=== PATIENT | female | born 1980 | race Caucasian/White ===

== ENCOUNTER 2019-10-20 06:01 | Emergency (ER) | payer OTHER, SELFPAY ==
[2019-10-20 06:08] VITALS: BP 124/86; PULSE 101; RESP 15; TEMP 36.8; O2SAT 94; BMI 41.4
[2019-10-20 06:17] VITALS: BP 124/86; PULSE 97; RESP 18; O2SAT 94
--- NOTE | 2019-10-20 06:30 | XRR_ITS ---
PROCEDURE INFORMATION: Exam: XR Chest, 1 View Exam date and time: 10/20/2019 6:32 AM Age: 39 years old Clinical indication: Other: Neck pain and RT shoulder numbness; Additional info: Chest pain TECHNIQUE: Imaging protocol: XR of the chest Views: 1 view. COMPARISON: No relevant prior studies available. FINDINGS: Lungs: Unremarkable. No consolidation. Pleural space: Unremarkable. No pleural effusion. No pneumothorax. Heart/Mediastinum: Unremarkable. No cardiomegaly. Bones/joints: Unremarkable. XR/XR chest 1V portable [id number] IMPRESSION: No acute findings.
--- NOTE | 2019-10-20 06:30 | CTR_ITS ---
PROCEDURE INFORMATION: Exam: CT Head Without Contrast Exam date and time: 10/20/2019 6:44 AM Age: 39 years old Clinical indication: Other: Numbness on RT shoulder; Additional info: Symptoms of acute stroke TECHNIQUE: Imaging protocol: Computed tomography of the head without contrast. Total DLP: 766.58 mGy-cm Radiation optimization: All CT scans at this facility use at least one of these dose optimization techniques: automated exposure control; mA and/or kV adjustment per patient size (includes targeted exams where dose is matched to clinical indication); or iterative reconstruction. COMPARISON: No relevant prior studies available. FINDINGS: Brain: Normal. No hemorrhage. Unremarkable white matter. No mass effect. Ventricles: Normal. No ventriculomegaly. Bones/joints: Unremarkable. No acute fracture. Sinuses: There are air-fluid levels in the left sphenoid and right frontal sinuses. Mastoid air cells: Visualized mastoid air cells are well aerated. Soft tissues: Unremarkable. CT/CT head wo con* [id number] IMPRESSION: 1. No acute intracranial findings identified. Please refer to incidental findings in body of report. 2. There are air-fluid levels in the left sphenoid and right frontal sinuses. Radiation Dose CTDIVOL = (mGy): DLP = 766.58 (mGy-cm)
--- NOTE | 2019-10-20 06:30 | CTR_ITS ---
PROCEDURE INFORMATION: Exam: CT Angiography Head With Contrast Exam date and time: 10/20/2019 6:44 AM Age: 39 years old Clinical indication: Other: Numbness on RT shoulder; Additional info: Neck pain TECHNIQUE: Imaging protocol: Computed tomography angiography of the head with intravenous contrast. 3D rendering: MIP and/or 3D reconstructed images were created by the technologist. Total DLP: 2704.97 mGy-cm Radiation optimization: All CT scans at this facility use at least one of these dose optimization techniques: automated exposure control; mA and/or kV adjustment per patient size (includes targeted exams where dose is matched to clinical indication); or iterative reconstruction. Contrast material: OMNI 300; Contrast volume: 95 ml; Contrast route: RT WRIST; COMPARISON: CT head wo con* [id number] 10/20/2019 7:08 AM FINDINGS: Right internal carotid artery: Unremarkable. Intracranial segment is patent with no significant stenosis. No aneurysm. Right anterior cerebral artery: Unremarkable. No occlusion or significant stenosis. No aneurysm. Right middle cerebral artery: Unremarkable. No occlusion or significant stenosis. No aneurysm. Right posterior cerebral artery: There is a origin of the right posterior cerebral artery. Right vertebral artery: The patient is right vertebral artery dominant. Left internal carotid artery: Unremarkable. Intracranial segment is patent with no significant stenosis. No aneurysm. Left anterior cerebral artery: Unremarkable. No occlusion or significant stenosis. No aneurysm. Left middle cerebral artery: Unremarkable. No occlusion or significant stenosis. No aneurysm. Left posterior cerebral artery: Unremarkable. No occlusion or significant stenosis. No aneurysm. Left vertebral artery: Unremarkable. No occlusion or significant stenosis. No aneurysm. Basilar artery: Unremarkable. No occlusion or significant stenosis. No aneurysm. HEAD: Sinuses: There are air-fluid levels in the left sphenoid and right frontal sinuses. IMPRESSION: 1. No acute findings are identified. Please see above report for incidental findings. 2. There is a origin of the right posterior cerebral artery. 3. The patient is right vertebral artery dominant. 4. There are air-fluid levels in the left sphenoid and right frontal sinuses. PROCEDURE INFORMATION: Exam: CT Angiography Neck With Contrast Exam date and time: 10/20/2019 6:44 AM Age: 39 years old Clinical indication: Other: Numbness on RT shoulder; Additional info: Neck pain TECHNIQUE: Imaging protocol: Computed tomography angiography of the neck with intravenous contrast. 3D rendering: MIP and/or 3D reconstructed images were created by the technologist. Total DLP: 2704.97 mGy-cm Radiation optimization: All CT scans at this facility use at least one of these dose optimization techniques: automated exposure control; mA and/or kV adjustment per patient size (includes targeted exams where dose is matched to clinical indication); or iterative reconstruction. Contrast material: OMNI 300; Contrast volume: 95 ml; Contrast route: RT WRIST; COMPARISON: CT head wo con* [id number] 10/20/2019 7:08 AM FINDINGS: VASCULATURE: Right common carotid artery: Unremarkable. No stenosis. No dissection or occlusion. Right internal carotid artery: Unremarkable extracranial segment. No stenosis. No dissection or occlusion. Right external carotid artery: Unremarkable. No occlusion or stenosis of the origin. Right vertebral artery: The patient is right vertebral artery dominant. Left common carotid artery: Unremarkable. No stenosis. No dissection or occlusion. Left internal carotid artery: Unremarkable extracranial segment. No stenosis. No dissection or occlusion. Left external carotid artery: Unremarkable. No occlusion or stenosis of the origin. Left vertebral artery: Unremarkable. No stenosis. No dissection or occlusion. NECK: Thyroid: There is a 1.4 cm heterogeneous solid right thyroid isthmus nodule. Bones/joints: No acute fracture. Soft tissues: Normal. No significant soft tissue swelling. CT/CT angio headneck* [id number] IMPRESSION: 1. No acute findings are identified. Please see above report for incidental findings. 2. There is a 1.4 cm heterogeneous solid right thyroid isthmus nodule. Followup thyroid ultrasound is recommended. Radiation Dose CTDIVOL = (mGy): DLP = 2704.97~2704.97 (mGy-cm)
--- NOTE | 2019-10-20 06:32 | ECG_ITS ---
Measurements Intervals [place] Rate: 94 P: 44 ME: 155 QRS: 23 QRSD: 85 T: 18 QT: 312 QTc: 391 SINUS RHYTHM No previous ECG available for comparison Electronically Signed On 10-20-2019 13:28:06 [employer] by Beryl Liang M.D. [email or web address]
[2019-10-20 06:45] LABS: Glucose Point of Care 191 mg/dL (70-110)
[2019-10-20] MEDS: sodium chloride 0.9% 500 ML 999 ML IV (06:53)
[2019-10-20 07:01] LABS: Add Urine Microscopic? NO
[2019-10-20 07:13] LABS: Basophils # 0.1 10^3/uL (0.0-0.1); Basophils % 0.5 %; Eosinophils # 0.2 10^3/uL (0.0-0.8); Eosinophils % 1.7 %; Hemoglobin 13.2 g/dL (11.5-15.3); Lymphocytes # 3.4 10^3/uL (0.8-4.8); Lymphocytes % 26.3 %; Mean Corpuscular HGB Conc 31.4 g/dL (30.0-36.0); Mean Corpuscular Hemoglobin 28.5 pg (28.0-34.0); Mean Corpuscular Volume 90.7 fL (81-99); Mean Platelet Volume 9.9 fL (7.4-10.4); Monocytes # 0.6 10^3/uL (0.2-0.9); Monocytes % 4.6 %; Neutrophils # 8.5 10^3/uL (1.8-7.7); Neutrophils % 66.4 %; Nucleated Red Blood Cells % 0 %; Platelet Count 338 10^3/cmm (130-400); Red Blood Count 4.63 10^6/uL (4.1-5.3); Red Cell Distribution Width 14.7 % (12.1-15.1); White Blood Count 12.8 10^3/uL (4.0-10.0)
[2019-10-20 07:16] LABS: Bilirubin Urine 1+ (NEGATIVE); Blood Urine Neg (Negative); Glucose Urine UA Norm (Normal); Ketones Urine 1+ (Negative); Leukocyte Esterase Urine Negative (Negative); Nitrate Urine Negative (Negative); Protein Urine Neg (Negative); Specific Gravity, Urine 1.015 (1.005-1.030); Urine Appearance Clear (CLEAR); Urine Color Yellow (Yellow); Urobilinogen Urine 1 mg/dL (Negative); pH Urine 6 (5-7)
[2019-10-20 07:25] LABS: Amphetamines Screen Urine Negative (Negative); Barbiturates Screen Urine Negative (Negative); Benzodiazepines Screen Urine Negative (Negative); Cocaine Screen Urine Negative (Negative); PCP Screen Urine Negative (Negative); THC Screen Urine Negative (Negative)
--- NOTE | 2019-10-20 07:28 | ED_ITS ---
HPI - Chest Pain General: Chief Complaint: Chest Pain Stated Complaint: numbness,high blood pressure Time Seen by Provider: 10/20/19 06:30 Source: patient and family History of Present Illness: HPI narrative: Cecily is a nice 39-year-old female who comes in complaining of sharp right sided neck pain with tingling in her face, arm and leg. She describes the tingling as a paresthesia type sensation. She also states that she feels it in her tongue. She says this started at 520 this morning and was associated with a sharp pain. The pain is now gone and the numbness is slowly getting better. She has had similar symptoms in the past with anxiety but never had the pain. She denies any other problems with speech, weakness, syncope, chest pain or other complaint. Associated symptoms: Deny abdominal pain, diaphoresis, dyspnea, fever(s), nausea, palpitations, syncope or vomiting Review of Systems General: Reports: other (negative unless marked) Const: Denies: fever, chills, body aches, fatigue, malaise or diaphoresis Eyes: Denies: change in vision or blurry vision ENMT: Denies: throat pain, painful swallowing, hoarseness, ear pain, ear discharge, Change in hearing or nasal discharge Card: Denies: chest pain, palpitations, irregular heart rhythm, syncope, pre- syncope, shortness of breath on exertion or shortness of breath when lying down Resp: Denies: shortness of breath, productive cough, non-productive cough, wheezing, coughing up blood or chest congestion GI: Denies: abdominal pain, nausea, vomiting, vomiting blood, coffee grounds in vomit, diarrhea, constipation, cramping, blood in stool or black tarry stool : Denies: flank pain, painful urination, urinary frequency, urinary urgency, decreased urine ouput, urinary incontinence or blood in urine Musc: Denies: neck pain, back pain, extremity pain, extremity swelling, joint pain, joint swelling, joint warmth or joint stiffness Skin/Breast: Denies: rash, skin tenderness or yellow skin Neuro: Reports: other (As described in HPI); Denies: headache, numbness in extremities, weakness in extremities, changes in sensation, lack of coordination, difficulty walking, dizziness, vertigo or confusion Endo: Denies: excessive thirst, tired all the time, cold intolerance, exc essive sweating, flushing or hot flashes Tobi/Lymph: Denies: easy bruising, easy bleeding, petechiae or enlarged lymph nodes All/Imm: Denies: hives, throat swelling, tongue swelling, facial swelling or acute wheezing PFSH ED PFSH: Statuses (acute, chronic, etc) shown below reflect problem list status as previously entered and may not be historically accurate Medical History (Updated 10/20/19 @ 09:06 by Crista Sotelo) Anxiety (Acute) Arrhythmia (Acute) Diabetes mellitus (Acute) GERD (gastroesophageal reflux disease) (Acute) Hypertension (Acute) Zenker's diverticulum (Acute) Surgical History (Updated 10/20/19 @ 07:32 by Crista Sotelo) deliv NOS-unsp (Acute) H/O breast surgery (Acute) History of dental surgery (Acute) History of removal of ovarian cyst (Acute) Family History (Updated 10/20/19 @ 07:33 by Crista Sotelo) Other Diabetes Hypertension Stroke Social History Smoking and tobacco status: current every day smoker Physical Exam Const: COMMON NORMALS: no apparent distress, oriented x3, no limitations, healthy appearing and well nourished EXAM LIMITATIONS: no altered mental status GENERAL APPEARANCE: cooperative, well kempt and well developed ORIENTATION/CONSCIOUSNESS: Yes awake HENMT: COMMON NORMALS: normocephalic, head/scalp atraumatic, hearing grossly normal bilaterally, external ears normal, EAC's normal, external nose normal and moist oral mucous membranes HEAD & SCALP: normal to inspection, normocephalic and atraumatic FACE & SINUS: normal facial exam and face symmetric NOSE: external nose normal and nares normal EXTERNAL EAR: Yes external ears normal EXTERNAL AUDITORY CANAL: EAC's normal MOUTH: oral and palatal mucosa normal and tongue normal Eye: COMMON NORMALS: PERRL, EOMs intact bilaterally, conjunctivae normal and no scleral icterus GENERAL EYE: normal appearance of both eyes and normal light reflex CONJUNCTIVA: Yes conjunctivae normal SCLERA: sclerae normal CORNEA: Yes corneas normal PUPIL: Yes PERRL DIRECT OPHTHALMOSCOPY: Yes normal light reflex Neck/C-Spine: COMMON NORMALS: full ROM, no lymphadenopathy, supple, no meningeal signs and no JVD GENERAL: Yes normal visual inspection and Yes trachea midline CERVICAL SPINE: Yes cervical ROM normal Chest: COMMONS NORMALS: inspection of chest normal and palpation of chest normal Resp: COMMON NORMALS: normal respiratory effort, no retractions, no use of accessory muscles and clear to auscultation bilaterally EFFORT & INSPECTION: Yes able to speak in complete sentences AUSCULTATION: clear to auscultation bilaterally Cardio: COMMON NORMALS: no JVD, regular rate, regular rhythm, S1 normal heart sound, S2 normal heart sound, no gallops, no clicks, no murmurs and no rub JUGULAR VENOUS DISTENTION: no JVD RATE: regular rate RHYTHM: regular rhythm HEART SOUNDS: S1 normal and S2 normal GI: COMMON NORMALS: soft to palpation, non-tender, no hepatosplenomegaly and no masses INSPECTION: Yes normal to inspection PALPATION: Yes soft and Yes no hepatosplenomegaly : COMMON NORMALS: Yes no CVA tenderness BLADDER/KIDNEY EXAM: Yes no CVA tenderness Back/Pelvis: COMMON NORMALS: no CVA tenderness, thoracic and lumbar spine normal to inspection, no thoracic nor lumbar tenderness and thoraco-lumbar ROM normal Extremity: COMMON NORMALS: normal to inspection, full ROM, normal capillary refill, no joint enlargement, no clubbing, cyanosis or edema and no calf tenderness Neuro: HAROON COMA SCALE: other (NIHSS - 1, 1 point for sensory) COMMON NORMALS: oriented x3, CN's II-XII intact bilaterally, moves all extremities, no focal motor deficits and no sensory deficits noted MENINGEAL SIGNS: Yes no meningeal signs Psych: COMMON NORMALS: mental status grossly normal, thought process normal, cooperative, affect normal, speech normal and activity/motor behavior normal APPEARANCE: Yes well kempt SPEECH: Yes normal speech THOUGHT PROCESS: normal thought process Skin: COMMON NORMALS: no rashes or lesions noted, skin turgor normal, no jaundice, no petechiae and no mottling GENERAL SKIN EXAM: no rashes or lesions noted and turgor normal Course Vital Signs: Vital signs: Vital Signs Temperature 98.3 F 10/20/19 06:08 Pulse Rate 82 10/20/19 08:03 Respiratory Rate 19 H 10/20/19 08:03 Blood Pressure 124/92 10/20/19 08:03 Pulse Oximetry 91 10/20/19 08:03 MDM - Chest Pain MDM Narrative: Medical decision making narrative: 0902 -the patient's symptoms are entirely gone. She has no more tingling on her right side. It is unclear whether this was a complicated migraine as she did develop a headache after the fact. I have informed her of the possibility of a TIA and she is aware but she refuses to come into the hospital for further risk stratification. She states that her blood sugar and cholesterol are under good control and she already takes a baby aspirin daily. I will have her increase to a full strength aspirin and she will discuss with her primary care provider about adding Plavix. The patient understands that she is at increased risk of stroke in the short-term and long-term and she will need to follow-up for further testing but she is adamant she does not want to come in at this time. The patient was informed if she change her mind she is more than welcome to return. Lab Data: Labs: Lab Results 10/20/19 10/20/19 10/20/19 Range/Units 06:41 06:57 06:57 WBC 12.8 H (4.0-10.0) 10^3/ uL RBC 4.63 (4.1-5.3) 10^6/u L Hgb 13.2 (11.5-15.3) g/dL Hct 42.0 (37.0-47.0) % MCV 90.7 (81-99) fL MCH 28.5 (28.0-34.0) pg MCHC 31.4 (30.0-36.0) g/dL RDW 14.7 (12.1-15.1) % Plt Count 338 (130-400) 10^3/c mm MPV 9.9 (7.4-10.4) fL Neut % (Auto) 66.4 % Lymph % (Auto) 26.3 % [place] % (Auto) 4.6 % Eos % (Auto) 1.7 % Baso % (Auto) 0.5 % Neut # (Auto) 8.5 H (1.8-7.7) 10^3/u L Lymph # (Auto) 3.4 (0.8-4.8) 10^3/u L [place] # (Auto) 0.6 (0.2-0.9) 10^3/u L Eos # (Auto) 0.2 (0.0-0.8) 10^3/u L Baso # (Auto) 0.1 (0.0-0.1) 10^3/u L Nucleated RBC % (a uto) 0 % Nucleated RBCs # 0.0 /100WBC PT 12.60 (10.5-13.3) SECO NDS INR 0.91 (0.8-1.2) APTT 37.0 H (23.9-36.7) SECO NDS Sodium (136-145) mmol/L Potassium (3.5-5.1) mmol/L Chloride (98-107) mmol/L Carbon Dioxide (22-29) mmol/L Anion Gap (5-19) BUN (6-20) mg/dL Creatinine (0.5-0.9) mg/dL GFR Calculation (90-130) mL/min Glucose (74-109) mg/dL POC Glucose 191 (70-110) mg/dL Calcium (8.6-10.0) mg/Dl Total Bilirubin (0.15-1.2) mg/dL AST (0-32) U/L ALT (0-33) U/L Alkaline Phosphata se (35-105) IU/L Troponin T Baselin e (0-10) ng/mL Total Protein (6.6-8.7) g/dL Albumin (3.5-5.2) g/dL Globulin (1.3-4.6) g/dL Ser , Deep i-Qnt mIU/mL Urine Color (Yellow) Urine Appearance (CLEAR) Urine pH (5-7) Ur Specific Gravit y (1.005-1.030) Urine Protein (Negative) Urine Glucose (UA) (Normal) Urine Ketones (Negative) Urine Occult Blood (Negative) Urine Nitrate (Negative) Urine Bilirubin (NEGATIVE) Urine Urobilinogen (Negative) mg/dL Ur Leukocyte Daysi ase (Negative) Urine Opiates Scre en (Negative) ng/mL Ur Barbiturates Sc reen (Negative) ng/mL Ur Phencyclidine S crn (Negative) ng/mL Ur Amphetamines Sc reen (Negative) ng/mL U Benzodiazepines Scrn (Negative) ng/mL Urine Cocaine Scre en (Negative) ng/mL U Marijuana (THC) Screen (Negative) ng/mL 10/20/19 10/20/19 10/20/19 Range/Units 06:57 06:57 06:57 WBC (4.0-10.0) 10^3/ uL RBC (4.1-5.3) 10^6/u L Hgb (11.5-15.3) g/dL Hct (37.0-47.0) % MCV (81-99) fL MCH (28.0-34.0) pg MCHC (30.0-36.0) g/dL RDW (12.1-15.1) % Plt Count (130-400) 10^3/c mm MPV (7.4-10.4) fL Neut % (Auto) % Lymph % (Auto) % [place] % (Auto) % Eos % (Auto) % Baso % (Auto) % Neut # (Auto) (1.8-7.7) 10^3/u L Lymph # (Auto) (0.8-4.8) 10^3/u L [place] # (Auto) (0.2-0.9) 10^3/u L Eos # (Auto) (0.0-0.8) 10^3/u L Baso # (Auto) (0.0-0.1) 10^3/u L Nucleated RBC % (a uto) % Nucleated RBCs # /100WBC PT (10.5-13.3) SECO NDS INR (0.8-1.2) APTT (23.9-36.7) SECO NDS Sodium 137 (136-145) mmol/L Potassium 4.1 (3.5-5.1) mmol/L Chloride 103 (98-107) mmol/L Carbon Dioxide 21 L (22-29) mmol/L Anion Gap 17.1 (5-19) BUN 8 (6-20) mg/dL Creatinine 0.7 (0.5-0.9) mg/dL GFR Calculation 92.2 (90-130) mL/min Glucose 189 H (74-109) mg/dL POC Glucose (70-110) mg/dL Calcium 9.6 (8.6-10.0) mg/Dl Total Bilirubin 0.3 (0.15-1.2) mg/dL AST 13 (0-32) U/L ALT 15 (0-33) U/L Alkaline Phosphata se 95 (35-105) IU/L Troponin T Baselin e 6 (0-10) ng/mL Total Protein 7.1 (6.6-8.7) g/dL Albumin 4.3 (3.5-5.2) g/dL Globulin 2.8 (1.3-4.6) g/dL Ser , Deep i-Qnt < 0.50 mIU/mL Urine Color (Yellow) Urine Appearance (CLEAR) Urine pH (5-7) Ur Specific Gravit y (1.005-1.030) Urine Protein (Negative) Urine Glucose (UA) (Normal) Urine Ketones (Negative) Urine Occult Blood (Negative) Urine Nitrate (Negative) Urine Bilirubin (NEGATIVE) Urine Urobilinogen (Negative) mg/dL Ur Leukocyte Daysi ase (Negative) Urine Opiates Scre en (Negative) ng/mL Ur Barbiturates Sc reen (Negative) ng/mL Ur Phencyclidine S crn (Negative) ng/mL Ur Amphetamines Sc reen (Negative) ng/mL U Benzodiazepines Scrn (Negative) ng/mL Urine Cocaine Scre en (Negative) ng/mL U Marijuana (THC) Screen (Negative) ng/mL 10/20/19 10/20/19 Range/Units 06:57 06:57 WBC (4.0-10.0) 10^3/ uL RBC (4.1-5.3) 10^6/u L Hgb (11.5-15.3) g/dL Hct (37.0-47.0) % MCV (81-99) fL MCH (28.0-34.0) pg MCHC (30.0-36.0) g/dL RDW (12.1-15.1) % Plt Count (130-400) 10^3/c mm MPV (7.4-10.4) fL Neut % (Auto) % Lymph % (Auto) % [place] % (Auto) % Eos % (Auto) % Baso % (Auto) % Neut # (Auto) (1.8-7.7) 10^3/u L Lymph # (Auto) (0.8-4.8) 10^3/u L [place] # (Auto) (0.2-0.9) 10^3/u L Eos # (Auto) (0.0-0.8) 10^3/u L Baso # (Auto) (0.0-0.1) 10^3/u L Nucleated RBC % (a uto) % Nucleated RBCs # /100WBC PT (10.5-13.3) SECO NDS INR (0.8-1.2) APTT (23.9-36.7) SECO NDS Sodium (136-145) mmol/L Potassium (3.5-5.1) mmol/L Chloride (98-107) mmol/L Carbon Dioxide (22-29) mmol/L Anion Gap (5-19) BUN (6-20) mg/dL Creatinine (0.5-0.9) mg/dL GFR Calculation (90-130) mL/min Glucose (74-109) mg/dL POC Glucose (70-110) mg/dL Calcium (8.6-10.0) mg/Dl Total Bilirubin (0.15-1.2) mg/dL AST (0-32) U/L ALT (0-33) U/L Alkaline Phosphata se (35-105) IU/L Troponin T Baselin e (0-10) ng/mL Total Protein (6.6-8.7) g/dL Albumin (3.5-5.2) g/dL Globulin (1.3-4.6) g/dL Ser , Deep i-Qnt mIU/mL Urine Color Yellow (Yellow) Urine Appearance Clear (CLEAR) Urine pH 6 (5-7) Ur Specific Gravit y 1.015 (1.005-1.030) Urine Protein Neg (Negative) Urine Glucose (UA) Norm (Normal) Urine Ketones 1+ H (Negative) Urine Occult Blood Neg (Negative) Urine Nitrate Negative (Negative) Urine Bilirubin 1+ H (NEGATIVE) Urine Urobilinogen 1 H (Negative) mg/dL Ur Leukocyte Daysi ase Negative (Negative) Urine Opiates Scre en Positve (Negative) ng/mL Ur Barbiturates Sc reen Negative (Negative) ng/mL Ur Phencyclidine S crn Negative (Negative) ng/mL Ur Amphetamines Sc reen Negative (Negative) ng/mL U Benzodiazepines Scrn Negative (Negative) ng/mL Urine Cocaine Scre en Negative (Negative) ng/mL U Marijuana (THC) Screen Negative (Negative) ng/mL Imaging Data^: CT Head: Radiologist's impression: [address] [place] [address] CT Scan Report Signed Patient: Clemencia Ibrahim MR#: [id number] : 1980 Acct:[id number] Age/Sex: 39 / F ADM Date: 10/20/19 Loc: ER Attending Dr: Ordering Physician: Crista Sotelo DO Date of Service: 10/20/19 Procedure(s): CT head wo con* [id number] Accession Number(s): [id number] cc: Crista Sotelo DO PROCEDURE INFORMATION: Exam: CT Head Without Contrast Exam date and time: 10/20/2019 6:44 AM Age: 39 years old Clinical indication: Other: Numbness on RT shoulder; Additional info: Symptoms of acute stroke TECHNIQUE: Imaging protocol: Computed tomography of the head without contrast. Total DLP: 766.58 mGy-cm Radiation optimization: All CT scans at this facility use at least one of these dose optimization techniques: automated exposure control; mA and/or kV adjustment per patient size (includes targeted exams where dose is matched to clinical indication); or iterative reconstruction. COMPARISON: No relevant prior studies available. FINDINGS: Brain: Normal. No hemorrhage. Unremarkable white matter. No mass effect. Ventricles: Normal. No ventriculomegaly. Bones/joints: Unremarkable. No acute fracture. Sinuses: There are air-fluid levels in the left sphenoid and right frontal sinuses. Mastoid air cells: Visualized mastoid air cells are well aerated. Soft tissues: Unremarkable. CT/CT head wo con* [id number] IMPRESSION: 1. No acute intracranial findings identified. Please refer to incidental findings in body of report. 2. There are air-fluid levels in the left sphenoid and right frontal sinuses. Radiation Dose CTDIVOL = (mGy): DLP = 766.58 (mGy-cm) Dictated By: Myron Hodges 10/20/19 0838 Signed By: Myron Hodges 10/20/19 0839 Other Imaging: Radiologist's impression: [address] [place] [address] CT Scan Report Signed Patient: Clemencia Ibrahim MR#: [id number] : 1980 Acct:[id number] Age/Sex: 39 / F ADM Date: 10/20/19 Loc: ER Attending Dr: Ordering Physician: Crista Sotelo DO Date of Service: 10/20/19 Procedure(s): CT angio headneck* [id number] Accession Number(s): [id number] cc: Crista Sotelo DO PROCEDURE INFORMATION: Exam: CT Angiography Head With Contrast Exam date and time: 10/20/2019 6:44 AM Age: 39 years old Clinical indication: Other: Numbness on RT shoulder; Additional info: Neck pain TECHNIQUE: Imaging protocol: Computed tomography angiography of the head with intravenous contrast. 3D rendering: MIP and/or 3D reconstructed images were created by the technologist. Total DLP: 2704.97 mGy-cm Radiation optimization: All CT scans at this facility use at least one of these dose optimization techniques: automated exposure control; mA and/or kV adjustment per patient size (includes targeted exams where dose is matched to clinical indication); or iterative reconstruction. Contrast material: OMNI 300; Contrast volume: 95 ml; Contrast route: RT WRIST; COMPARISON: CT head wo con* [id number] 10/20/2019 7:08 AM FINDINGS: Right internal carotid artery: Unremarkable. Intracranial segment is patent with no significant stenosis. No aneurysm. Right anterior cerebral artery: Unremarkable. No occlusion or significant stenosis. No aneurysm. Right middle cerebral artery: Unremarkable. No occlusion or significant stenosis. No aneurysm. Right posterior cerebral artery: There is a origin of the right posterior cerebral artery. Right vertebral artery: The patient is right vertebral artery dominant. Left internal carotid artery: Unremarkable. Intracranial segment is patent with no significant stenosis. No aneurysm. Left anterior cerebral artery: Unremarkable. No occlusion or significant stenosis. No aneurysm. Left middle cerebral artery: Unremarkable. No occlusion or significant stenosis. No aneurysm. Left posterior cerebral artery: Unremarkable. No occlusion or significant stenosis. No aneurysm. Left vertebral artery: Unremarkable. No occlusion or significant stenosis. No aneurysm. Basilar artery: Unremarkable. No occlusion or significant stenosis. No aneurysm. HEAD: Sinuses: There are air-fluid levels in the left sphenoid and right frontal sinuses. IMPRESSION: 1. No acute findings are identified. Please see above report for incidental findings. 2. There is a origin of the right posterior cerebral artery. 3. The patient is right vertebral artery dominant. 4. There are air-fluid levels in the left sphenoid and right frontal sinuses. PROCEDURE INFORMATION: Exam: CT Angiography Neck With Contrast Exam date and time: 10/20/2019 6:44 AM Age: 39 years old Clinical indication: Other: Numbness on RT shoulder; Additional info: Neck pain TECHNIQUE: Imaging protocol: Computed tomography angiography of the neck with intravenous contrast. 3D rendering: MIP and/or 3D reconstructed images were created by the technologist. Total DLP: 2704.97 mGy-cm Radiation optimization: All CT scans at this facility use at least one of these dose optimization techniques: automated exposure control; mA and/or kV adjustment per patient size (includes targeted exams where dose is matched to clinical indication); or iterative reconstruction. Contrast material: OMNI 300; Contrast volume: 95 ml; Contrast route: RT WRIST; COMPARISON: CT head wo con* [id number] 10/20/2019 7:08 AM FINDINGS: VASCULATURE: Right common carotid artery: Unremarkable. No stenosis. No dissection or occlusion. Right internal carotid artery: Unremarkable extracranial segment. No stenosis. No dissection or occlusion. Right external carotid artery: Unremarkable. No occlusion or stenosis of the origin. Right vertebral artery: The patient is right vertebral artery dominant. Left common carotid artery: Unremarkable. No stenosis. No dissection or occlusion. Left internal carotid artery: Unremarkable extracranial segment. No stenosis. No dissection or occlusion. Left external carotid artery: Unremarkable. No occlusion or stenosis of the origin. Left vertebral artery: Unremarkable. No stenosis. No dissection or occlusion. NECK: Thyroid: There is a 1.4 cm heterogeneous solid right thyroid isthmus nodule. Bones/joints: No acute fracture. Soft tissues: Normal. No significant soft tissue swelling. CT/CT angio headneck* [id number] IMPRESSION: 1. No acute findings are identified. Please see above report for incidental findings. 2. There is a 1.4 cm heterogeneous solid right thyroid isthmus nodule. Followup thyroid ultrasound is recommended. Radiation Dose CTDIVOL = (mGy): DLP = 2704.97 2704.97 (mGy-cm) Dictated By: Myron Hodges 10/20/19 0847 Signed By: Myron Hodges 10/20/19 0848 EKG Data^: EKG 1: Attestation: I personally reviewed and interpreted this EKG as follows: (EKG performed interpreted at 0622 -normal sinus rhythm at 94 beats a minute, normal [place] interval, normal axis, nonspecific ST and T wave changes. No acute ST segment elevations or changes.) EKG 2: Attestation: I personally reviewed and interpreted this EKG as follows: (EKG at 0841 -normal sinus rhythm at 74 beats minute, normal intervals, normal QRS, no acute ST or T wave changes.) Discharge Plan Discharge Patient Disposition: Home, Self-Care Clinical Impression: TIA (transient ischemic attack), Complicated migraine Condition: Stable Discharge Orders: Discharge Order (Routine); Ordered 10/20/19 Ordered By: Crista Sotelo Referrals: Candice Anand MD [Staff Physician] - (Follow-up with Dr. Anand or with Maday Ayala APN as soon as possible for recheck.) Discharge Diet: Low Cholesterol Discharge Activity: Increase activity as tolerated Patient Instructions: Headache - Migraine (Adult), TIA Activity Restrictions/Additional Instructions: Please return to the ER immediately for any of the signs or symptoms listed on your discharge instruction sheets, worsening/changing of your symptoms, you are not getting better as quickly as expected, or for ANY other cause or concerns. I have recommended and offered to admit you to the hospital for further evaluation of a possible mini stroke but you have declined. If your symptoms return/change or worsen you are encouraged and more than welcome to return to the ER for recheck. Coding Level of Care Code ED Program Evaluation Consultant for Chg Fwd Exam Problem Focused
[2019-10-20 07:32] LABS: Alanine Aminotransferase 15 U/L (0-33); Albumin Level 4.3 g/dL (3.5-5.2); Alkaline Phosphatase 95 IU/L (35-105); Anion Gap 17.1 (5-19); Aspartate Amino Transferase 13 U/L (0-32); Blood Urea Nitrogen 8 mg/dL (6-20); Calcium 9.6 mg/Dl (8.6-10.0); Carbon Dioxide 21 mmol/L (22-29); Chloride 103 mmol/L (98-107); Globulin 2.8 g/dL (1.3-4.6); Glomerular Filtration Rate 92.2 mL/min (90-130); Glucose 189 mg/dL (74-109); Potassium 4.1 mmol/L (3.5-5.1); Sodium 137 mmol/L (136-145); Total Bilirubin 0.3 mg/dL (0.15-1.2); Total Protein 7.1 g/dL (6.6-8.7)
[2019-10-20 07:33] LABS: Troponin(5th) Baseline 6 ng/mL (0-10)
[2019-10-20 07:34] VITALS: BP 139/85; PULSE 88; RESP 17; O2SAT 96
[2019-10-20 07:53] LABS: HCG Quantitative < 0.50 mIU/mL
[2019-10-20 08:03] VITALS: BP 124/92; PULSE 82; RESP 19; O2SAT 91
[2019-10-20 08:20] LABS: INR 0.91 (0.8-1.2)
--- NOTE | 2019-10-20 08:32 | ECG_ITS ---
Measurements Intervals [place] Rate: 74 P: 44 NE: 159 QRS: 41 QRSD: 75 T: 27 QT: 352 QTc: 392 SINUS RHYTHM No previous ECG available for comparison Electronically Signed On 10-20-2019 14:59:26 MANNEQUIN MOLDER by Beryl Liang M.D. [email or web address]
[2019-10-20 09:27] LABS: Troponin 5 2HR 6.16 ng/mL (0-10)
[2019-10-20] MEDS: acetaminophen 500 mg Tablet 1000 MG PO (09:29)
[2019-10-20] MEDS: metoclopramide 5 mg/mL SDV 2 mL 10 MG IV (09:30)
[2019-10-20] MEDS: aspirin 325 mg Tablet PO (09:30)
[2019-10-20 09:33] VITALS: BP 127/86; PULSE 85; RESP 18; O2SAT 95
[2019-10-20 09:34] LABS: Troponin 5 2HR Delta 0.16 ABS# (0-10)
== END 2019-10-20 09:43 | disposition home or self-care (01) ==
PROVIDERS: Emergency Provider Emergency Medicine
DX: G45.9 Transient cerebral ischemic attack, unspecified (principal); G43.109 Migraine with aura, not intractable, without status migrainosus; F17.210 Nicotine dependence, cigarettes, uncomplicated; E11.9 Type 2 diabetes mellitus without complications; I10 Essential (primary) hypertension
CPT/HCPCS: 36415; 36416; 70450; 70496; 70498; 71045; 80053; 80307; 81003; 82962; 84484; 84702; 85025; 85610; 85730; 93005; 96360; 96374; 99283; A9270; J2765; J7040; Q9967

== ENCOUNTER 2019-11-01 09:44 | Outpatient (CLI) | payer OTHER, SELFPAY ==
--- NOTE | 2019-11-01 09:54 | USCV_ITS ---
Clemencia Ibrahim Age: 39 Gender: F : 1980 Exam Date: 11/01/2019 10:06 Ordering Phys: Ya Butt APRN Technologist: Chantal Shah [place] [facility] [place]: [place]N TIA BP: / HR: 85 Rhythm: Sinus Technical Quality: Adequate MEASUREMENTS (Male / Female) Normal Values 2D ECHO LV Diastolic Diameter PLAX 4.7 cm 4.2 - 5.9 / 3.9 - 5.3 cm LV Systolic Diameter PLAX 3.5 cm LV Chamber Size 4.0 cm IVS Diastolic Thickness 1.2 cm 0.6 - 1.0 / 0.6 - 0.9 cm IVS Systolic Thickness 1.6 cm LVPW Diastolic Thickness 1.0 cm 0.6 - 1.0 / 0.6 - 0.9 cm LVPW Systolic Thickness 1.9 cm RV Chamber Size 2.8 cm LVOT Diameter 2.0 cm LV Ejection Fraction 2D Teich 49.4 % LV Ejection Fraction MOD 2C 42.4 % LV Ejection Fraction 2C AL 42.1 % LA Diameter 5.0 cm LA Width 2.9 cm LA Height 4.1 cm RA Width 3.4 cm RA Height 3.8 cm Aorta at Sinotubular Diameter 3.0 cm M-MODE LV Diastolic Diameter MM 5.2 cm 4.2 - 5.9 / 3.9 - 5.3 cm LV Systolic Diameter MM 3.5 cm LV Ejection Fraction MM Teich 61.6 % IVS Diastolic Thickness MM 1.1 cm 0.6 - 1.0 / 0.6 - 0.9 cm IVS Systolic Thickness MM 1.4 cm LVPW Diastolic Thickness MM 1.3 cm 0.6 - 1.0 / 0.6 - 0.9 cm LVPW Systolic Thickness MM 1.9 cm RV Diastolic Diameter MM 2.3 cm Aortic Annulus Diameter 3.0 cm LA Ao Ratio MM 1.7 MV E Point Septal Separation 0.6 cm DOPPLER AV Peak Velocity 166.0 cm/s LVOT Peak Velocity 105.0 cm/s AV Area Cont Eq vti 2.1 cm squared AV Area Cont Eq pk 2.1 cm squared MV Area PHT 5.4 cm squared Mitral E to A Ratio 1.2 MV E' Velocity 10.0 cm/s Mitral E to MV E' Ratio 9.9 Mitral E to LV E' Lateral Ratio 10.0 Mitral E to LV E' Septal Ratio 9.8 TR Peak Velocity 135.8 cm/s TR Peak Gradient 7.4 mmHg TR Mean Velocity 90.4 cm/s TR Mean Gradient 3.6 mmHg TR Velocity Time Integral 23.7 cm TV Peak E Velocity 75.0 cm/s Right Atrial Pressure 3.0 mmHg Pulmonary Artery Systolic Pressu 10.4 mmHg PV Peak Velocity 81.0 cm/s RV Acceleration Time 0.1 s RV Ejection Time 0.3 s RV AcT/ET 0.3 FINDINGS Left Ventricle Normal left ventricular cavity size. Normal left ventricular systolic function. Left ventricular ejection fraction is estimated at 60 %. Although no diagnostic regional wall motion abnormality could be identified, this possibility cannot be completely excluded based on the study. Right Ventricle Normal right ventricular size and systolic function. Right ventricular systolic pressure 10.4 mmHg. Right Atrium Normal right atrial size. Aneurysmal interatrial septum. No atrial septal defect or PFO identified on the study. Left Atrium Normal left atrial size. Mitral Valve Mildly thickened mitral valve. No significant mitral valve regurgitation. Aortic Valve Aortic valve not well visualized. No aortic valve stenosis. No aortic valve regurgitation. Tricuspid Valve Tricuspid valve not well visualized. Trace tricuspid valve regurgitation. Pulmonic Valve Pulmonic valve not well visualized. Trace pulmonary valve regurgitation. Pericardium No pericardial effusion. Aorta Aorta not well visualized. CONCLUSIONS 1. Normal left ventricular cavity size and systolic function. Left ventricular ejection fraction is estimated at 60 %. Although no diagnostic regional wall motion abnormality could be identified, this possibility cannot be completely excluded based on the study. 2. Normal right ventricular size and systolic function. 3. No significant valvular abnormality. 4. Aneurysmal interatrial septum. No atrial septal defect or PFO identified on the study. 5. No prior similar studies to compare. Beryl Liang MD (Electronically Signed) Final Date: 01 November 2019 18:37 S
--- NOTE | 2019-11-01 10:09 | US_ITS ---
WS: [id number] Thyroid ultrasound, 11/01/2019 Clinical Data: RIGHT THYROID NODULE Comparison: None. Findings: The right lobe of thyroid measures 5.9 cm x 2.1 cm x 1.9 cm. The largest nodule is 0.99 x 2.19 cm. The left lobe measures 4.9 cm x 1.9 cm x 1.4 cm. There are 2 nodules one measuring 0.41 x 1.12 cm and the other 1.04 x 1.08 cm in the midportion. The isthmus measured 0.5 mm. There is a nodule of the isthmus measuring 1.13 x 1.61 cm. The echotexture of the thyroid is mixed. There are numerous cysts and nodules. US/US thyroid [id number] Impression: Multinodular goiter.
== END 2019-11-01 09:45 | disposition home or self-care (01) ==
LOC: RAD 09:47
PROVIDERS: PCP Nurse Practitioner Family; Visit Provider Nurse Practitioner Family
DX: G45.9 Transient cerebral ischemic attack, unspecified (principal); I10 Essential (primary) hypertension; E04.2 Nontoxic multinodular goiter; I25.3 Aneurysm of heart
CPT/HCPCS: 76536; 93306

== ENCOUNTER 2020-01-17 10:00 | Outpatient (CLI) | payer OTHER, SELFPAY ==
--- NOTE | 2020-01-17 10:08 | MR_ITS ---
WS: [id number] MRI HEAD WITHOUT CONTRAST TECHNIQUE: Sagittal T1, T2 axial, T2 axial FLAIR, axial and coronal T1 images, axial susceptibility w eighted imaging, axial diffusion weighted images, and coronal T2 images were obtained. CLINICAL INFORMATION: TRANSIENT CEREBRAL ISCHEMIC ATTACK COMPARISON: CT October 20, 2019 FINDINGS: No evidence of restricted diffusion to suggest acute ischemia. Ventricular system and basal cisterns are patent. No suspicious intracanal signal abnormalities. Mild parenchymal volume loss. Normal poste rior fossa. Normal vascular flow voids at the skull base. No extra-axial fluid collections. No evidence of mass or mass effect. Partial opacification frontoethmoidal recesses and ethmoid air ce lls. Mastoid air cells are well aerated. No hemosiderin and on the susceptibility weighted images. Normal optic chiasm and pituitary infundibu lum. Normal temporal lobes and hippocampal formations. MR/MR head wo con* [id number] IMPRESSION: 1. No evidence of restricted diffusion to suggest acute ischemia. 2. No suspicious intracranial signal abnormalities. Mild parenchymal volume lo ss. 3. Mild mucosal thickening in the frontal ethmoidal recess and ethmoid air shad ls. 4. Mastoid air cells are well aerated. 5. No hemosiderin on susceptibly weighted images.
== END 2020-01-17 10:01 | disposition home or self-care (01) ==
LOC: RADWPI 10:04
PROVIDERS: PCP Nurse Practitioner Family; Visit Provider Nurse Practitioner Family
DX: G45.9 Transient cerebral ischemic attack, unspecified (principal)
CPT/HCPCS: 70551

== ENCOUNTER 2020-02-11 18:28 | Outpatient (CLI) | payer OTHER, SELFPAY ==
[2020-02-11 19:55] LABS: Basophils # 0.1 10^3/uL (0.0-0.1); Basophils % 0.4 %; Eosinophils # 0.3 10^3/uL (0.0-0.8); Eosinophils % 2.3 %; Hematocrit 43.8 % (37.0-47.0); Hemoglobin 13.5 g/dL (11.5-15.3); Lymphocytes # 3.7 10^3/uL (0.8-4.8); Mean Corpuscular HGB Conc 30.8 g/dL (30.0-36.0); Mean Corpuscular Hemoglobin 27.3 pg (28.0-34.0); Mean Corpuscular Volume 88.5 fL (81-99); Mean Platelet Volume 10.5 fL (7.4-10.4); Monocytes # 0.7 10^3/uL (0.2-0.9); Monocytes % 4.6 %; Neutrophils # 9.4 10^3/uL (1.8-7.7); Neutrophils % 66.2 %; Nucleated Red Blood Cells % 0 %; Platelet Count 397 10^3/cmm (130-400); Red Blood Count 4.95 10^6/uL (4.1-5.3); Red Cell Distribution Width 15.6 % (12.1-15.1); White Blood Count 14.3 10^3/uL (4.0-10.0)
[2020-02-11 20:48] LABS: Erythrocyte Sedimentation Rate 35 mm/hr (0-15)
[2020-02-13 12:47] LABS: Anti-Nuclear Antibody Screen NEGATIVE (NEGATIVE)
[2020-02-15 20:02] LABS: HLA-B27 NEGATIVE (NEGATIVE)
== END 2020-02-11 18:29 | disposition home or self-care (01) ==
LOC: LAB 18:32
PROVIDERS: PCP Nurse Practitioner Family; Visit Provider Nurse Practitioner Family
DX: D72.829 Elevated white blood cell count, unspecified (principal)
CPT/HCPCS: 85025; 85651; 86038; 86812

== ENCOUNTER 2020-04-02 16:49 | Outpatient (CLI) | payer OTHER, SELFPAY ==
[2020-04-02 17:49] LABS: Basophils # 0.1 10^3/uL (0.0-0.1); Basophils % 0.4 %; Eosinophils # 0.3 10^3/uL (0.0-0.8); Eosinophils % 1.7 %; Hematocrit 42.8 % (37.0-47.0); Hemoglobin 13.3 g/dL (11.5-15.3); Lymphocytes # 4.2 10^3/uL (0.8-4.8); Lymphocytes % 25.7 %; Mean Corpuscular HGB Conc 31.1 g/dL (30.0-36.0); Mean Corpuscular Hemoglobin 27.7 pg (28.0-34.0); Mean Platelet Volume 10.2 fL (7.4-10.4); Monocytes # 0.8 10^3/uL (0.2-0.9); Monocytes % 4.9 %; Neutrophils # 10.8 10^3/uL (1.8-7.7); Neutrophils % 66.9 %; Nucleated Red Blood Cells % 0 %; Platelet Count 377 10^3/cmm (130-400); Red Blood Count 4.81 10^6/uL (4.1-5.3); Red Cell Distribution Width 15.6 % (12.1-15.1); White Blood Count 16.2 10^3/uL (4.0-10.0)
[2020-04-02 18:16] LABS: Estmated Average Glucose 151; Hemoglobin A1C 6.9 % (4.0-6.0)
[2020-04-02 19:25] LABS: Creatinine Urine, Random 247 mg/dL (28-217); Microalbum Creatinine Ratio Ur 8 mg/dL (0-20); Microalbumin Random Urine 2 ug/dL (0-20)
[2020-04-02 20:24] LABS: Urine Appearance Cloudy (CLEAR); Urine Color Yellow (Yellow)
[2020-04-02 20:25] LABS: Add Urine Culture? Yes; Amorphous Sediment Urine 2+; Bacteria Urine 4+; Bilirubin Urine Neg (NEGATIVE); Blood Urine Neg (Negative); Glucose Urine UA Norm (Normal); Ketones Urine Negative (Negative); Leukocyte Esterase Urine 2+ (Negative); Nitrate Urine Positive (Negative); Protein Urine Neg (Negative); RBC Urine 0-4 /hpf (0-2); Squamous Epithelial Cell Urine 0-4 (0-5); Urobilinogen Urine Norm (Negative); WBC Urine TOO NUMEROUS TO CNT /hpf (0-5); pH Urine 5 (5-7)
[2020-04-03 01:23] LABS: Alanine Aminotransferase 21 U/L (0-33); Albumin Level 3.9 g/dL (3.5-5.2); Alkaline Phosphatase 119 IU/L (35-105); Anion Gap 24.8 (5-19); Aspartate Amino Transferase 21 U/L (0-32); Blood Urea Nitrogen 6 mg/dL (6-20); Calcium 9.4 mg/dL (8.5-10.5); Carbon Dioxide 21 mmol/L (22-29); Chloride 96 mmol/L (98-107); Globulin 3.4 g/dL (1.3-4.6); Glomerular Filtration Rate 110.2 mL/min (90-130); Glucose 131 mg/dL (65-115); Osmolality Calculated 282 mOsm/kg (285-295); Potassium 4.8 mmol/L (3.5-5.1); Sodium 137 mmol/L (136-145); Total Bilirubin 0.2 mg/dL (0.15-1.2); Total Protein 7.3 g/dL (6.6-8.7)
== END 2020-04-02 16:50 | disposition home or self-care (01) ==
LOC: LAB 16:51
PROVIDERS: PCP Nurse Practitioner Family; Visit Provider Nurse Practitioner Family
DX: E11.65 Type 2 diabetes mellitus with hyperglycemia (principal)
CPT/HCPCS: 80053; 81001; 82044; 83036; 84080; 85025

== ENCOUNTER 2020-04-29 20:00 | Outpatient (CLI) | payer OTHER, SELFPAY | END 2020-04-29 20:01 | disposition home or self-care (01) | LOC: SLEEP 04-30 09:31 | PROVIDERS: PCP Nurse Practitioner Family; Visit Provider Nurse Practitioner Family | DX: G47.33 Obstructive sleep apnea (adult) (pediatric) (principal) | CPT/HCPCS: 95810 ==

== ENCOUNTER 2020-05-14 14:37 | Outpatient (CLI) | payer OTHER, SELFPAY ==
[2020-05-14 16:34] LABS: Basophils # 0.1 10^3/uL (0.0-0.1); Basophils % 0.5 %; Eosinophils # 0.2 10^3/uL (0.0-0.8); Eosinophils % 1.8 %; Hematocrit 41.3 % (37.0-47.0); Hemoglobin 12.9 g/dL (11.5-15.3); Lymphocytes # 4.4 10^3/uL (0.8-4.8); Lymphocytes % 33.2 %; Mean Corpuscular HGB Conc 31.2 g/dL (30.0-36.0); Mean Corpuscular Hemoglobin 27.5 pg (28.0-34.0); Mean Corpuscular Volume 88.1 fL (81-99); Mean Platelet Volume 10.1 fL (7.4-10.4); Monocytes # 0.8 10^3/uL (0.2-0.9); Monocytes % 5.8 %; Neutrophils # 7.71 10^3/uL (1.8-7.7); Neutrophils % 58.2 %; Nucleated Red Blood Cells % 0 %; Platelet Count 321 10^3/cmm (130-400); Red Blood Count 4.69 10^6/uL (4.1-5.3); Red Cell Distribution Width 15.9 % (12.1-15.1); White Blood Count 13.2 10^3/uL (4.0-10.0)
[2020-05-14 16:46] LABS: Anion Gap 14.2 (5-19); Blood Urea Nitrogen 5 mg/dL (6-20); Calcium 9.1 mg/dL (8.5-10.5); Carbon Dioxide 25 mmol/L (22-29); Chloride 102 mmol/L (98-107); Glomerular Filtration Rate 110.2 mL/min (90-130); Glucose 133 mg/dL (65-115); Osmolality Calculated 282 mOsm/kg (285-295); Potassium 4.2 mmol/L (3.5-5.1); Sodium 137 mmol/L (136-145); Uric Acid 4.8 mg/dL (2.4-5.7)
[2020-05-14 19:13] LABS: LAB Peripheral Smear Sent for Review
[2020-05-14 20:55] LABS: Urine Appearance Hazy (CLEAR); Urine Color Yellow (Yellow)
[2020-05-14 20:56] LABS: Add Urine Microscopic? YES; Bilirubin Urine Neg (NEGATIVE); Blood Urine Neg (Negative); Glucose Urine UA Norm (Normal); Ketones Urine Negative (Negative); Leukocyte Esterase Urine Trace (Negative); Nitrate Urine Positive (Negative); Protein Urine Neg (Negative); Urobilinogen Urine Norm (Negative); pH Urine 6.5 (5-7)
[2020-05-14 20:58] LABS: Bacteria Urine 4+; RBC Urine 0-4 /hpf (0-2); WBC Urine 15-25 /hpf (0-5)
[2020-05-14 20:59] LABS: Add Urine Culture? No
[2020-05-15 15:19] LABS: Lyme AB Screen <0.90 index
[2020-05-17 22:05] LABS: E. Chaffeensis AB IGG <1:64; E. Chaffeensis AB IGM <1:20
[2020-05-19 22:40] LABS: RMSF IGG DETECTED; RMSF IGM NOT DETECTED
== END 2020-05-14 14:38 | disposition home or self-care (01) ==
LOC: LAB 14:39
PROVIDERS: PCP Nurse Practitioner Family; Visit Provider Nurse Practitioner Family
DX: D72.829 Elevated white blood cell count, unspecified (principal)
CPT/HCPCS: 80048; 80500; 81001; 81003; 84550; 85025; 86618; 86666; 86757; 87086; 87186

== ENCOUNTER 2020-06-30 20:00 | Outpatient (CLI) | payer OTHER, SELFPAY | END 2020-06-30 20:01 | disposition home or self-care (01) | LOC: SLEEP 07-01 08:45 | PROVIDERS: PCP Nurse Practitioner Family; Visit Provider Nurse Practitioner Family | DX: G47.33 Obstructive sleep apnea (adult) (pediatric) (principal) | CPT/HCPCS: 95811 ==

== ENCOUNTER 2020-07-01 16:50 | Outpatient (CLI) | payer OTHER, SELFPAY ==
[2020-07-01 17:09] LABS: Basophils # 0.1 10^3/uL (0.0-0.1); Basophils % 0.3 %; Eosinophils # 0.3 10^3/uL (0.0-0.8); Eosinophils % 1.7 %; Hemoglobin 12.7 g/dL (11.5-15.3); Lymphocytes # 4.8 10^3/uL (0.8-4.8); Lymphocytes % 31.5 %; Mean Corpuscular Hemoglobin 27.4 pg (28.0-34.0); Mean Corpuscular Volume 88.4 fL (81-99); Mean Platelet Volume 10.3 fL (7.4-10.4); Monocytes # 0.8 10^3/uL (0.2-0.9); Monocytes % 5.4 %; Neutrophils # 9.16 10^3/uL (1.8-7.7); Neutrophils % 60.8 %; Nucleated Red Blood Cells % 0 %; Platelet Count 355 10^3/cmm (130-400); Red Blood Count 4.64 10^6/uL (4.1-5.3); Red Cell Distribution Width 15.7 % (12.1-15.1); White Blood Count 15.1 10^3/uL (4.0-10.0)
[2020-07-01 17:39] LABS: Estmated Average Glucose 146; Hemoglobin A1C 6.7 % (4.0-6.0)
[2020-07-01 18:02] LABS: Alanine Aminotransferase 23 U/L (0-33); Alkaline Phosphatase 119 IU/L (35-105); Anion Gap 14.3 (5-19); Aspartate Amino Transferase 17 U/L (0-32); Blood Urea Nitrogen 6 mg/dL (6-20); Calcium 9.1 mg/dL (8.5-10.5); Carbon Dioxide 26 mmol/L (22-29); Chloride 100 mmol/L (98-107); Globulin 3.1 g/dL (1.3-4.6); Glucose 144 mg/dL (65-115); Osmolality Calculated 280 mOsm/kg (285-295); Potassium 4.3 mmol/L (3.5-5.1); Sodium 136 mmol/L (136-145); Thyroid Stimulating Hormone 1.84 uIU/mL (0.27-4.20); Total Bilirubin 0.2 mg/dL (0.15-1.2); Total Protein 7.1 g/dL (6.6-8.7); Vitamin B12 786 pg/mL (232-1245)
== END 2020-07-01 16:51 | disposition home or self-care (01) ==
LOC: LAB 16:53
PROVIDERS: PCP Nurse Practitioner Family; Visit Provider Nurse Practitioner Family
DX: I10 Essential (primary) hypertension (principal); E11.65 Type 2 diabetes mellitus with hyperglycemia; D51.9 Vitamin B12 deficiency anemia, unspecified
CPT/HCPCS: 80053; 82607; 83036; 83735; 84443; 85025

== ENCOUNTER 2021-08-13 15:48 | Outpatient (CLI) | payer OTHER, SELFPAY ==
--- NOTE | 2021-08-13 15:57 | XR_ITS ---
WS: [id number] KNEE RIGHT TECHNIQUE: 3 views of the right knee CLINICAL INFORMATION: RIGHT KNEE PAIN COMPARISON: None. FINDINGS: Right knee is normal in appearance. No evidence of acute fracture dislocation. No significant effusio n. Patella is normal. XR/XR knee RT 3V* [id number] IMPRESSION: Normal right knee. Kellgren-Tristin Classification:
== END 2021-08-13 15:49 | disposition home or self-care (01) ==
PROVIDERS: PCP Nurse Practitioner Family; Visit Provider Nurse Practitioner Family
DX: M25.561 Pain in right knee (principal)
CPT/HCPCS: 73562

== ENCOUNTER → 2023-02-04 15:30 | Outpatient (BNVA) | payer OTHER, SELFPAY | PROVIDERS: Referring Provider Nurse Practitioner Family; Visit Provider Obstetrics & Gynecology | DX: Z12.4 Encounter for screening for malignant neoplasm of cervix (principal) | CPT/HCPCS: 87624 ==

== ENCOUNTER 2023-02-24 10:25 | Day surgery (SDC) | payer OTHER, SELFPAY ==
[2023-02-23 13:05] VITALS: BMI 41.5
[2023-02-24] VITALS (10 sets, daily range): BP systolic 95–132; BP diastolic 65–90; PULSE 74–95; RESP 16–21; TEMP 36.2–36.7; O2SAT 92–99
--- NOTE | 2023-02-24 01:21 | W.PM.OPSFHP ---
Same Day Surgery H&P Indication for Procedure/HPI DATE OF PROCEDURE: February 24, 2023 CHIEF COMPLAINT/INDICATIONFOR SURGICAL PROCEDURE: 42 y.o. LNMP December 2020 + abnormal spotting in January 2023 PREOP DIAGNOSIS: abnormal uterine bleeding PLANNED PROCEDURE: Operation Date: 02/24/23 12:35 Proposed Procedures p Hysteroscopy with Myosure, endometrial sampling 99995, possible endometrial polypectomy 32487,N93.9(Not Applicable) - Adriel Olivares MD s Poylpectomy(Not Applicable) - Adriel Olivares MD Medications/Allergies* Home Medications Medication Instructions Recorded Confirmed Type aspirin 81 mg tablet,delayed 81 mg PO DAILY 12/05/19 02/23/23 History release (Adult Low Dose Aspirin) cyclobenzaprine 10 mg tablet 10 mg PO DAILY PRN muscle relaxer 12/05/19 02/23/23 History famotidine 20 mg tablet (Pepcid) 20 mg PO DAILY 12/05/19 02/23/23 History folic acid 1 mg tablet 1 mg PO DAILY 12/05/19 02/23/23 History lorazepam 0.5 mg tablet (Ativan) 0.5 mg PO DAILY PRN Anxiety 12/05/19 02/23/23 History metformin 1,000 mg tablet 1,000 mg PO BID 12/05/19 02/23/23 History pantoprazole 40 mg tablet,delayed 40 mg PO BID 12/05/19 02/23/23 History release semaglutide 0.25 mg or 0.5 mg (2 1 mg SUBCUT DIRECTED 12/05/19 02/23/23 History mg/1.5 mL) subcutaneous pen injector (Ozempic) atorvastatin 10 mg tablet 10 mg PO DAILY 02/04/23 02/23/23 History cyanocobalamin (vitamin B-12) 5,000 mcg sublingual .MONTHLY 02/04/23 02/23/23 History 1,000 mcg/mL sublingual drops gabapentin 300 mg capsule 300 mg PO TID 02/04/23 02/23/23 History levocetirizine 5 mg tablet (Xyzal) 5 mg PO DAILY 02/04/23 02/23/23 History lisinopril 2.5 mg tablet 10 mg PO DAILY 02/04/23 02/23/23 History metoprolol succinate 50 mg 50 mg PO DAILY 02/04/23 02/23/23 History tablet,extended release 24 hr montelukast 10 mg tablet 10 mg PO DAILY 02/04/23 02/23/23 History (Singulair) Allergies/Adverse Reactions Allergy/AdvReac Type Severity Reaction Status Date / Time Cephalosporins Allergy ADR-Vomitin Verified 02/04/23 14:44 g desflurane [From Suprane] Allergy Unknown Verified 02/04/23 14:44 meperidine [From Demerol] Allergy ADR-Vomitin Verified 02/04/23 14:44 g pistachio nut Allergy ALGY-Anaphy Verified 02/04/23 14:44 laxis shellfish derived Allergy ALGY-Anaphy Verified 02/04/23 14:44 laxis Pertinent History/Comorbid Conditions* Medical History (Updated 02/11/23 @ 01:55 by Adriel Olivares MD) Anxiety Arrhythmia Diabetes mellitus GERD (gastroesophageal reflux disease) Hypertension TIA (transient ischemic attack) Zenker's diverticulum Surgical History (Updated 10/20/19 @ 07:32 by Crista Sotelo) deliv NOS-unsp H/O breast surgery History of dental surgery History of removal of ovarian cyst Family History (Updated 02/04/23 @ 14:52 by Kimmy Morales) Diabetes Father Mother Heart disease Mother Brother Hypertension Mother Thyroid disease Mother Stroke Father Mother Denies family history of Colon cancer Ovarian cancer Breast cancer Uterine cancer Social History Smoking and tobacco status: current every day smoker cigarettes Packs smoked per day: 1.5 Alcohol intake: current Alcohol intake frequency: few times a month Substance/Drug Use: never Pertinent Exam Findings alert, oriented x 3, clear to auscultation bilaterally and regular rate & rhythm Recommendations Surgery/Procedure today Coding Level of Care Code Acute Code for Chg Fwd Diagnoses Time Spent (min) 15
[2023-02-24 10:58] LABS: Glucose Point of Care 139 mg/dL (70-110)
[2023-02-24] MEDS: sodium chloride 0.9% 1,000 ML 30 ML IV (11:10)
[2023-02-24 11:20] LABS: OR HCG Qualitative Urine Negative (Negative)
--- NOTE | 2023-02-24 11:33 | W.PM.OPSUD ---
Surgery/Procedure H&P Update DATE OF PROCEDURE: February 24, 2023 DATE H&P PERFORMED: 02/24/23 CHANGES TO PREVIOUS DOCUMENTATION: none PREOP DIAGNOSIS: abnormal uterine bleeding PRIMARY INDICATION FOR PROCEDURE: abnormal uterine bleeding PLANNED PROCEDURE: Operation Date: 02/24/23 14:10 Proposed Procedures p Hysteroscopy with Myosure, endometrial sampling 83730, possible endometrial polypectomy 92263,N93.9(Not Applicable) - Adriel Olivares MD s Poylpectomy(Not Applicable) - Adriel Olivares MD
--- NOTE | 2023-02-24 12:32 | ANES.PREANE2 ---
Pre-Anesthetic Assessment Height/Weight: Height 1.65 m Weight 113.398 kg Temp Pulse Resp BP Pulse Ox O2 Del Method 97.3 F L 93 18 132/90 97 Room Air 02/24/23 10:46 02/24/23 10:46 02/24/23 10:46 02/24/23 10:46 02/24/23 10:46 02/24/23 10:49 Preop Diagnosis: abnormal uterine bleeding Operation Date: 02/24/23 14:10 Proposed Procedures p Hysteroscopy with Myosure, endometrial sampling 56695, possible endometrial polypectomy 64862,N93.9(Not Applicable) - Adriel Olivares MD s Poylpectomy(Not Applicable) - Adriel Olivares MD Familial anesthetic complications: none Was Beta Yovana taken within 24 hours: Yes Was Clonidine taken within 24 hours: N/A Last intake: Intake Last Liquid Date 02/24/23 Last Liquid Time 06:00 Last Solid Date 02/23/23 Last Solid Time 22:00 Social Tobacco and No alcohol Exam alert, oriented x 3 and regular rate & rhythm Airway Submandibular: within normal limits Cervical ROM: within normal limits Mallampati: Class II Dentition: false (upper) Pulmonary Chronic Obstructive Pulmonary Disease CV/HEM Hypertension GI Gastroesophageal Reflux Disease Metabolic Diabetes Mellitus, Hyperlipidemia and Morbid Obesity Neuropsych Anxiety Anesthetic Plan ASA status: 3 Anesthesia: General Medications/Allergies Home Medications Medication Instructions Recorded Confirmed Last Taken Type aspirin 81 mg tablet,delayed 81 mg PO DAILY 12/05/19 02/23/23 02/23/23 History release (Adult Low Dose Aspirin) cyclobenzaprine 10 mg tablet 10 mg PO DAILY PRN muscle relaxer 12/05/19 02/23/23 Unknown History famotidine 20 mg tablet (Pepcid) 20 mg PO DAILY 12/05/19 02/23/23 02/22/23 History folic acid 1 mg tablet 1 mg PO DAILY 12/05/19 02/23/23 02/23/23 History lorazepam 0.5 mg tablet (Ativan) 0.5 mg PO DAILY PRN Anxiety 12/05/19 02/23/23 Unknown History metformin 1,000 mg tablet 1,000 mg PO BID 12/05/19 02/23/23 02/23/23 History pantoprazole 40 mg tablet,delayed 40 mg PO BID 12/05/19 02/23/23 02/23/23 History release semaglutide 0.25 mg or 0.5 mg (2 1 mg SUBCUT DIRECTED 12/05/19 02/23/23 02/20/23 History mg/1.5 mL) subcutaneous pen injector (Ozempic) atorvastatin 10 mg tablet 10 mg PO DAILY 02/04/23 02/23/23 02/22/23 History cyanocobalamin (vitamin B-12) 5,000 mcg sublingual .MONTHLY 02/04/23 02/24/23 02/08/23 History 1,000 mcg/mL sublingual drops gabapentin 300 mg capsule 300 mg PO TID 02/04/23 02/23/23 02/23/23 History levocetirizine 5 mg tablet (Xyzal) 5 mg PO DAILY 02/04/23 02/23/23 02/23/23 History lisinopril 2.5 mg tablet 10 mg PO DAILY 02/04/23 02/23/23 02/23/23 History metoprolol succinate 50 mg 50 mg PO DAILY 02/04/23 02/23/23 02/24/23 History tablet,extended release 24 hr montelukast 10 mg tablet 10 mg PO DAILY 02/04/23 02/23/23 02/23/23 History (Singulair) Allergies Allergy/AdvReac Type Severity Reaction Status Date / Time Cephalosporins Allergy ADR-Vomitin Verified 02/24/23 10:39 g desflurane [From Suprane] Allergy Unknown Verified 02/24/23 10:39 meperidine [From Demerol] Allergy ADR-Vomitin Verified 02/24/23 10:39 g pistachio nut Allergy ALGY-Anaphy Verified 02/24/23 10:39 laxis shellfish derived Allergy ALGY-Anaphy Verified 02/24/23 10:39 laxis PFSH Anesthesia Medical History Anxiety Arrhythmia Diabetes mellitus GERD (gastroesophageal reflux disease) Hypertension TIA (transient ischemic attack) Zenker's diverticulum Surgical History deliv NOS-unsp H/O breast surgery History of dental surgery History of removal of ovarian cyst Family History (Updated 02/04/23 @ 14:52 by Kimmy Morales) Father Diabetes Stroke Mother Diabetes Hypertension Stroke Heart disease Thyroid disease Brother Heart disease Denies family history of Colon cancer Ovarian cancer Breast cancer Uterine cancer Social History Smoking and tobacco status: current every day smoker cigarettes Packs smoked per day: 1.5 Alcohol intake: current Alcohol intake frequency: few times a month Substance/Drug Use: never Data Anesthesia Cardiac Studies: Echocardiogram Ultrasound 11/01/19
--- NOTE | 2023-02-24 16:12 | ANE.PACU2 ---
Inpatient post-anesthesia follow up: Airway intact: Yes Vital signs: Temperature 97.8 F Pulse Rate 82 Respiratory Rate 16 Blood Pressure 102/83 Pulse Oximetry 94 Oxygen Delivery Me thod Room Air Oxygen Flow Rate 6 Fraction of Inspir ed Oxygen Hydration adequate: Yes Nausea and vomiting: No Pain level: 2 Mental status: Baseline
--- NOTE | 2023-02-26 03:44 | PM.OP ---
Operative Report Date of procedure: February 24, 2023 Pre-op diagnosis: Preop Diagnosis abnormal uterine bleeding Post-op diagnosis: abnormal uterine bleeding normal endometrial cavity Post-op findings: normal endometrial cavity No polyps or fibroids Minimal endometrial tissue Procedure done: hysteroscopy curettage of uterus Specimens removed/disposition: endometrial tissue Surgeon: Adriel Olivares M.D. Anesthesia: MAC Estimated blood loss (mL): 0 Complications: none Condition: stable Brief History: 42 y.o. with abnormal uterine bleeding Procedure: Informed consent signed. Patient taken to the operating room. Anesthesia induced. Patient was placed in dorsolithotomy position, prepped and draped for hysteroscopy. A bivalve speculum was placed in the vagina. The anterior lip of the cervix was grasped with a sharp-toothed tenaculum. The cervix was serially dilated with Hegar dilators. . A hysteroscope was placed into the endometrial cavity. The endometrial cavity was seen to be normal. There were no polyps or fibroids. There was minimal endometrial tissue. The hysteroscope was then removed. Endometrial curettage was done with a sharp curette. Endometrial tissue was sent to pathology. The sharp-toothed tenaculum was removed. There was no bleeding from the endometrial cavity or cervix. The patient was then placed supine and awakened and taken to the PACU. Postop condition: stable EBL: none Sponge and instruments counts were normal x 2 Complications: none
== END 2023-02-24 14:39 | disposition home or self-care (01) ==
PROVIDERS: PCP Nurse Practitioner Family; Visit Provider Obstetrics & Gynecology
PROC: 0UDB8ZZ Extraction of Endometrium, Via Natural or Artificial Opening Endoscopic (ICD-10-PCS; CPT 58558; principal; 2023-02-24 14:00)
PROC: (CPT 58558; 2023-02-24 14:00)
DX: N93.9 Abnormal uterine and vaginal bleeding, unspecified (principal); Z79.82 Long term (current) use of aspirin; Z79.85 Long-term (current) use of injectable non-insulin antidiabetic drugs; Z79.84 Long term (current) use of oral hypoglycemic drugs; E11.9 Type 2 diabetes mellitus without complications; I10 Essential (primary) hypertension; K21.9 Gastro-esophageal reflux disease without esophagitis; F41.9 Anxiety disorder, unspecified; F17.210 Nicotine dependence, cigarettes, uncomplicated; J44.9 Chronic obstructive pulmonary disease, unspecified; E78.5 Hyperlipidemia, unspecified; E66.01 Morbid (severe) obesity due to excess calories; Z68.41 Body mass index [BMI] 40.0-44.9, adult; N85.01 Benign endometrial hyperplasia
CPT/HCPCS: 58558; 36416; 81025; 82962; 84703; 88305; J1100; J1200; J2250; J2405; J2704; J3010; J7030

== ENCOUNTER 2023-04-07 11:14 | Day surgery (SDC) | payer OTHER, SELFPAY ==
[2023-04-04 08:17] VITALS: BMI 39.9
--- NOTE | 2023-04-06 00:22 | W.PM.OPSFHP ---
Same Day Surgery H&P Indication for Procedure/HPI DATE OF PROCEDURE: April 06, 2023 CHIEF COMPLAINT/INDICATIONFOR SURGICAL PROCEDURE: cervical BONNIE III PREOP DIAGNOSIS: cervical BONNIE III PLANNED PROCEDURE: Operation Date: 04/07/23 13:00 Proposed Procedures p Cervical Conization:86576,D06.9(Not Applicable) - Adriel Olivares MD 42 y.o. A6 s/p hysteroscopy, curettage of uterus February 24, 2023 for abnormal uterine bleeding Findings: normal endometrial cavity No polyps / fibroids Minimal endometrial tissue Pathology: cervical tissue with cervical BONNIE III Benign disordered proliferative endometrium Pap done February 04, 2023 - ASCUS, negative HPV however, pathology from endometrial sampling showed cervical BONNIE III patient now scheduled for cold-knife conization of cervix Medications/Allergies* Home Medications Medication Instructions Recorded Confirmed Type aspirin 81 mg tablet,delayed 81 mg PO DAILY 12/05/19 04/04/23 History release (Adult Low Dose Aspirin) cyclobenzaprine 10 mg tablet 10 mg PO DAILY PRN muscle relaxer 12/05/19 04/04/23 History famotidine 20 mg tablet (Pepcid) 20 mg PO DAILY 12/05/19 04/04/23 History folic acid 1 mg tablet 1 mg PO DAILY 12/05/19 04/04/23 History lorazepam 0.5 mg tablet (Ativan) 0.5 mg PO DAILY PRN Anxiety 12/05/19 04/04/23 History metformin 1,000 mg tablet 1,000 mg PO BID 12/05/19 04/04/23 History pantoprazole 40 mg tablet,delayed 40 mg PO BID 12/05/19 04/04/23 History release semaglutide 0.25 mg or 0.5 mg (2 1 mg SUBCUT DIRECTED 12/05/19 04/04/23 History mg/1.5 mL) subcutaneous pen injector (Ozempic) atorvastatin 10 mg tablet 10 mg PO DAILY 02/04/23 04/04/23 History cyanocobalamin (vitamin B-12) 5,000 mcg sublingual .MONTHLY 02/04/23 04/04/23 History 1,000 mcg/mL sublingual drops gabapentin 300 mg capsule 300 mg PO TID 02/04/23 04/04/23 History levocetirizine 5 mg tablet (Xyzal) 5 mg PO DAILY 02/04/23 04/04/23 History lisinopril 2.5 mg tablet 10 mg PO DAILY 02/04/23 04/04/23 History metoprolol succinate 50 mg 50 mg PO DAILY 02/04/23 04/04/23 History tablet,extended release 24 hr montelukast 10 mg tablet 10 mg PO DAILY 02/04/23 04/04/23 History (Singulair) Allergies/Adverse Reactions Allergy/AdvReac Type Severity Reaction Status Date / Time Cephalosporins Allergy ADR-Vomitin Verified 04/04/23 08:14 g desflurane [From Suprane] Allergy Unknown Verified 04/04/23 08:14 meperidine [From Demerol] Allergy ADR-Vomitin Verified 04/04/23 08:14 g pistachio nut Allergy ALGY-Anaphy Verified 04/04/23 08:14 laxis shellfish derived Allergy ALGY-Anaphy Verified 04/04/23 08:14 laxis Pertinent History/Comorbid Conditions* Medical History (Updated 03/08/23 @ 06:07 by Adriel Olivares MD) Anxiety Arrhythmia Diabetes mellitus GERD (gastroesophageal reflux disease) Hypertension TIA (transient ischemic attack) Zenker's diverticulum Surgical History (Updated 10/20/19 @ 07:32 by Crista Sotelo) deliv NOS-unsp H/O breast surgery History of dental surgery History of removal of ovarian cyst Family History (Updated 02/04/23 @ 14:52 by Kimmy Morales) Diabetes Father Mother Heart disease Mother Brother Hypertension Mother Thyroid disease Mother Stroke Father Mother Denies family history of Colon cancer Ovarian cancer Breast cancer Uterine cancer Social History Smoking and tobacco status: current every day smoker cigarettes Packs smoked per day: 1.5 Alcohol intake: current Alcohol intake frequency: few times a month Substance/Drug Use: never Pertinent Exam Findings alert, oriented x 3, clear to auscultation bilaterally and regular rate & rhythm Recommendations Surgery/Procedure today Coding Level of Care Code Acute Code for Chg Fwd Diagnoses Time Spent (min) 15
[2023-04-07] VITALS (13 sets, daily range): BP systolic 113–138; BP diastolic 64–97; PULSE 66–88; RESP 12–20; TEMP 36.4–36.7; O2SAT 92–97
[2023-04-07 12:01] LABS: OR HCG Qualitative Urine Negative (Negative)
[2023-04-07] MEDS: sodium chloride 0.9% 1,000 ML 30 ML IV (12:39)
--- NOTE | 2023-04-07 12:55 | W.PM.OPSUD ---
Surgery/Procedure H&P Update DATE OF PROCEDURE: April 07, 2023 DATE H&P PERFORMED: 04/06/23 CHANGES TO PREVIOUS DOCUMENTATION: none PREOP DIAGNOSIS: cervical BONNIE III PLANNED PROCEDURE: Operation Date: 04/07/23 13:00 Proposed Procedures p Cervical Conization:11868,D06.9(Not Applicable) - Adriel Olivares MD
--- NOTE | 2023-04-07 13:27 | ANES.PREANE2 ---
Pre-Anesthetic Assessment Height/Weight: Height 1.65 m Weight 108.862 kg O2 Del Method Room Air 04/07/23 11:49 Preop Diagnosis: cervical BONNIE III Operation Date: 04/07/23 13:00 Proposed Procedures p Cervical Conization:42892,D06.9(Not Applicable) - Adriel Olivares MD Familial anesthetic complications: none Was Beta Yovana taken within 24 hours: Yes Was Clonidine taken within 24 hours: N/A Last intake: Intake Last Liquid Date 04/06/23 Last Liquid Time 21:00 Last Solid Date 04/06/23 Last Solid Time 21:00 Social Tobacco and No alcohol Exam alert, oriented x 3 and regular rate & rhythm Airway Submandibular: within normal limits Cervical ROM: within normal limits Mallampati: Class II Dentition: false Pulmonary Chronic Obstructive Pulmonary Disease CV/HEM Hypertension GI Gastroesophageal Reflux Disease Metabolic Diabetes Mellitus, Hyperlipidemia and Morbid Obesity Neuropsych Anxiety Anesthetic Plan ASA status: 3 Anesthesia: General Medications/Allergies Home Medications Medication Instructions Recorded Confirmed Last Taken Type aspirin 81 mg tablet,delayed 81 mg PO DAILY 12/05/19 04/04/23 04/04/23 History release (Adult Low Dose Aspirin) cyclobenzaprine 10 mg tablet 10 mg PO DAILY PRN muscle relaxer 12/05/19 04/07/23 02/02/23 History famotidine 20 mg tablet (Pepcid) 20 mg PO DAILY 12/05/19 04/04/23 04/06/23 20:00 History folic acid 1 mg tablet 1 mg PO DAILY 12/05/19 04/04/23 04/06/23 08:00 History lorazepam 0.5 mg tablet (Ativan) 0.5 mg PO DAILY PRN Anxiety 12/05/19 04/07/23 02/02/23 History metformin 1,000 mg tablet 1,000 mg PO BID 12/05/19 04/04/23 04/06/23 08:00 History pantoprazole 40 mg tablet,delayed 40 mg PO BID 12/05/19 04/04/23 04/06/23 20:00 History release semaglutide 0.25 mg or 0.5 mg (2 1 mg SUBCUT DIRECTED 12/05/19 04/04/23 04/04/23 History mg/1.5 mL) subcutaneous pen injector (Ozempic) atorvastatin 10 mg tablet 10 mg PO DAILY 02/04/23 04/04/23 04/06/23 20:00 History cyanocobalamin (vitamin B-12) 5,000 mcg sublingual .MONTHLY 02/04/23 04/04/23 03/17/23 History 1,000 mcg/mL sublingual drops gabapentin 300 mg capsule 300 mg PO TID 02/04/23 04/04/23 04/06/23 20:00 History levocetirizine 5 mg tablet (Xyzal) 5 mg PO DAILY 02/04/23 04/04/23 04/06/23 20:00 History lisinopril 2.5 mg tablet 10 mg PO DAILY 02/04/23 04/04/23 04/06/23 08:00 History metoprolol succinate 50 mg 50 mg PO DAILY 02/04/23 04/04/23 04/07/23 07:00 History tablet,extended release 24 hr montelukast 10 mg tablet 10 mg PO DAILY 02/04/23 04/04/23 04/06/23 08:00 History (Ca) Allergies Allergy/AdvReac Type Severity Reaction Status Date / Time Cephalosporins Allergy ADR-Vomitin Verified 04/04/23 08:14 g desflurane [From Suprane] Allergy Unknown Verified 04/04/23 08:14 meperidine [From Demerol] Allergy ADR-Vomitin Verified 04/04/23 08:14 g pistachio nut Allergy ALGY-Anaphy Verified 04/04/23 08:14 laxis shellfish derived Allergy ALGY-Anaphy Verified 04/04/23 08:14 laxis Current Medications Generic Name Dose Route Start Last Admin Trade Name Freq PRN Reason Stop Dose Admin Sodium Chloride 1,000 mls @ 30 mls/hr 04/07/23 12:45 04/07/23 12:39 Sodium Chloride 0.9% IV 04/08/23 12:44 30 mls/hr .Q24H ANNAMARIE Administration PFSH Anesthesia Medical History Anxiety Arrhythmia Diabetes mellitus GERD (gastroesophageal reflux disease) Hypertension TIA (transient ischemic attack) Zenker's diverticulum Surgical History deliv NOS-unsp H/O breast surgery History of dental surgery History of removal of ovarian cyst Family History Father Diabetes Stroke Mother Diabetes Hypertension Stroke Heart disease Thyroid disease Brother Heart disease Denies family history of Colon cancer Ovarian cancer Breast cancer Uterine cancer Social History Smoking and tobacco status: current every day smoker cigarettes Packs smoked per day: 1.5 Alcohol intake: current Alcohol intake frequency: few times a month Substance/Drug Use: never Data Anesthesia Cardiac Studies: Echocardiogram Ultrasound 11/01/19
[2023-04-07] MEDS: vasopressin 20 unit/mL INJ INJECTION (13:53)
[2023-04-07] MEDS: ketorolac 30 mg/mL INJ 15 MG IVP (15:35)
--- NOTE | 2023-04-07 16:28 | ANE.PACU2 ---
Inpatient post-anesthesia follow up: Airway intact: Yes Vital signs: Temperature 98.0 F Pulse Rate 76 Respiratory Rate 16 Blood Pressure 138/93 Pulse Oximetry 94 Oxygen Delivery Me thod Room Air Oxygen Flow Rate 2 Fraction of Inspir ed Oxygen Hydration adequate: Yes Nausea and vomiting: No Pain level: 3 Mental status: Baseline
[2023-04-08 05:48] LABS: Glucose Point of Care 122 mg/dL (70-110)
--- NOTE | 2023-04-08 12:17 | PM.OP ---
Operative Report Date of procedure: April 07, 2023 Pre-op diagnosis: Preop Diagnosis cervical BONNIE III Post-op diagnosis: same Procedure done: cold-knife conization of cervix Specimens removed/disposition: cervical cone Surgeon: Adriel Olivares MD Anesthesia: MAC Estimated blood loss (mL): 5 Complications: none Condition: stable Brief History: patient with cervical BONNIE III Procedure: Informed consent signed The patient was taken to the operating room and placed supine on the table.? MAC anesthesia was induced.? The patient was placed in dorsolithotomy position.? The patient was prepped and draped in the usual sterile fashion.? A bivalve speculum was placed in the vagina.? The anterior lip of the cervix was grasped with a single toothed tenaculum.? The cervix was then infiltrated at the cervicovaginal junction with 20 U of vasopressin to decrease bleeding.? The cold-knife conization was then performed with a scalpel, to a depth of approximately 5-7 mm.? Bleeding from the posterior cervix was well-controlled with a single stitch of 2-O chromic.? No further bleeding was seen.? Monsel?s solution was applied.?? Excellent hemostasis was again noted.? All instruments were then removed.? The patient was placed supine, awakened, and taken to the recovery room. Postoperative condition:? stable EBL:? less than 5 cc Complications:? none Sponge and instrument counts were correct x two
== END 2023-04-07 16:00 | disposition home or self-care (01) ==
PROVIDERS: Anesthesiology; PCP Nurse Practitioner Family; Visit Provider Obstetrics & Gynecology
PROC: 0UBC7ZZ Excision of Cervix, Via Natural or Artificial Opening (ICD-10-PCS; CPT 57520; principal; 2023-04-07 12:50)
DX: N87.1 Moderate cervical dysplasia (principal); J44.9 Chronic obstructive pulmonary disease, unspecified; I10 Essential (primary) hypertension; K21.9 Gastro-esophageal reflux disease without esophagitis; E11.9 Type 2 diabetes mellitus without complications; E78.5 Hyperlipidemia, unspecified; E66.01 Morbid (severe) obesity due to excess calories; Z68.39 Body mass index [BMI] 39.0-39.9, adult; F17.210 Nicotine dependence, cigarettes, uncomplicated; Z79.82 Long term (current) use of aspirin; Z79.84 Long term (current) use of oral hypoglycemic drugs; Z86.73 Personal history of transient ischemic attack (TIA), and cerebral infarction without residual deficits
CPT/HCPCS: 57520; 36416; 81025; 82962; 84703; 88307; J1100; J1200; J1885; J2405; J2704; J3010; J3490; J7030

== ENCOUNTER → 2023-06-07 11:06 | Outpatient (BNVA) | payer OTHER, SELFPAY | PROVIDERS: PCP Nurse Practitioner Family; Visit Provider Podiatrist Foot & Ankle Surgery | DX: M76.61 Achilles tendinitis, right leg; E11.9 Type 2 diabetes mellitus without complications; Z79.84 Long term (current) use of oral hypoglycemic drugs | CPT/HCPCS: 73630 ==